=== PATIENT | female | born 1955 | race Caucasian/White ===

== ENCOUNTER 2021-03-06 15:24 | Emergency (ER) | payer BC, MEDICARE ==
[~2021-03-06 15:24] MED LIST: Iopamidol 370 76% 100 ML VIAL ONE
[2021-03-06] MEDS ORDERED: Sodium Chloride 0.9% 2,000 ML ONE (15:47)
[2021-03-06] MEDS ORDERED: Ondansetron PF 4 MG/2 ML Vial ONE (15:47)
[2021-03-06 15:56] LABS: #Lymphocytes 0.5 thou/uL (1.20-3.40); #Neutrophils 15.5 thou/uL (1.40-6.50); %Basophils 0.2 % (0.0-1.0); %Lymphocytes 3.2 % (21.0-51.0); %Neutrophils 90.6 % (42.0-75.0); Hemoglobin 16.3 g/dL (12.0-16.0); Mean Corpuscular HGB CONC 33.6 g/dL (32.0-36.0); Mean Corpuscular Hemoglobin 31.7 pg (27.0-31.0); Mean Corpuscular Volume 94.3 fL (78.0-98.0); Mean Platelet Volume 6.5 fL (7.4-10.4); Platelet Count 344 thou/uL (130-400); RBC Distribution Width 12.6 % (11.5-14.5); Red Blood Cell (RBC) Count 5.16 mill/uL (4.20-5.40); White Blood Cell (WBC) Count 17.1 thou/uL (4.8-10.8)
[2021-03-06] MEDS ORDERED: Sodium Chloride 0.9% 100 ML ONE (15:57)
[2021-03-06] MEDS ORDERED: cefTRIAXone\\ROCEPHIN 2 GM VIAL ONE (15:57)
[2021-03-06] MEDS ORDERED: Acetaminophen 500 MG TAB ONE (16:05)
[2021-03-06 16:17] LABS: ALT (SGPT) 54 U/L (8-55); AST (SGOT) 54 U/L (5-34); Albumin 3.6 g/dL (3.4-4.8); Alkaline Phosphatase 150 U/L (40-110); Anion Gap 19 mmol/L (10-20); BUN (Urea Nitrogen) 19 mg/dL (9.8-20.1); Bilirubin, Total 1.7 mg/dL (0.2-1.2); Calc. Creatinine Clearance 0 mL/min (70-130); Calcium 9.4 mg/dL (7.8-10.44); Carbon Dioxide 22 mmol/L (23-31); Chloride 95 mmol/L (98-107); Globulin 3.5 g/dL (2.4-3.5); Glucose 110 mg/dL (80-115); Lipase 24 U/L (8-78); Potassium 3.3 mmol/L (3.5-5.1); Protein, Total 7.1 g/dL (5.8-8.1); Sodium 133 mmol/L (136-145)
[2021-03-06] MEDS ORDERED: Azithromycin 500 MG VIAL ONE (16:30)
[2021-03-06] MEDS ORDERED: Sodium Chloride 0.9% 250 ML 250 ML ONE (16:31)
[2021-03-06 17:28] LABS: Bilirubin Negative (Negative); Blood, Urine Small (Negative); Clarity Clear (Clear); Glucose, Urine (Dipstick) Negative (Negative); Ketone, Urine 15 mg/dL (Negative); Leukocyte Negative (Negative); Nitrite Negative (Negative); Protein, Urine (Dipstick) 30 mg/dL (Neg-Trace)
[2021-03-06 17:32] LABS: Squamous Epithelial 0-3 HPF (0-3); WBC/HPF 0-3 HPF (0-3); Yeast-Budding 1+ HPF (None Seen)
[2021-03-06] MEDS ORDERED: Potassium Chloride 20 MEQ TAB ONE (18:27)
[2021-03-06] MEDS ORDERED: Dexamethasone 4 mg/ml Vial ONE (18:27)
[2021-03-06 19:45] LABS: SARS-CoV-2 NAA Rapid Test DETECTED (NotDetected)
== END 2021-03-06 20:18 | disposition short-term general hospital (02) ==
LOC: NAV ERS 15:24
DX: A41.89 Other specified sepsis (principal); U07.1 COVID-19; J12.82 Pneumonia due to coronavirus disease 2019; Z87.891 Personal history of nicotine dependence
CPT/HCPCS: 71045; 71275; 80053; 81003; 81015; 83605; 83690; 84484; 85025; 85379; 87040; 93005; 94760; 96365; 96366; 96367; 96375; J0456; J0696; J1100; J2405; J7050; Q9967; U0002